=== PATIENT | male | born 1970 | race Caucasian/White ===

== ENCOUNTER 2019-04-09 17:55 | Inpatient (IN) | payer OTHER, BC ==
[~2019-04-09] VITALS: Ht 177.8 cm; Wt 75.7 kg
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
[2019-04-09 18:42] LABS: BASOPHIL % 0.8 % (0-2); PLATELET COUNT 297 x10^3mcL (130-400)
[2019-04-09 18:44] LABS: CALCIUM 7.9 mg/dL (8.5-10.1); CARBON DIOXIDE 28.1 mmol/L (21-32); CHLORIDE SERUM 108 mmol/L (98-107); CREATININE SERUM 0.8 mg/dL (0.7-1.3); GFR1 > 60 mL/min; GLUCOSE SERUM 91 mg/dL (74-106); POTASSIUM SERUM 3.3 mmol/L (3.5-5.1); RED CELL DISTRIBUTION WIDTH 15.2 % (11.5-14.5); SODIUM SERUM 144 mmol/L (136-145)
[2019-04-09 18:49] LABS: ALBUMIN 3.6 g/dL (3.4-5.0); ALKALINE PHOSPHATASE 92 U/L (46-116); ALT/SGPT 22 U/L (16-63); AST/SGOT 18 U/L (15-37); BILIRUBIN TOTAL 0.2 mg/dL (0.20-1.00)
[2019-04-09 18:49] LABS: AMPHETAMINE QUAL UR NONE DETECTED (See below)
--- NOTE | 2019-04-09 19:30 | NUR ---
ASSUMED CARE OF PATIENT AT THIS TIME. PATIENT RECEIVED UPON STRETCHER AOX3, ON MONITOR, B/P NOTED TO BE ELEVATED ED MD AT BEDSIDE AT THIS TIME. MD AWARE, WILL CONTINUE TO MONITOR.
--- NOTE | 2019-04-09 19:30 | NUR ---
ASSUMED CARE OF PATIENT AT THIS TIME. PATIENT IS RECEIVED LYING ON STRETCHER AOX4, UPON MONITOR, B/P NOTED TO BE ELEVATED , AT BEDSIDE. WILL CONTINUE TO MONITOR PT.
--- NOTE | 2019-04-09 20:30 | NUR ---
WENT TO PT ROOM TO MEDICATE HIM WITH TORADOL AND HE REFUSED THE MEDICATION STATED THAT IT IS ONLY IBUPROFEN AND ITS FOR CHILDREN. HE WANTS SOMETHING MUCH STRONGER. PATIENT STATES THAT HE WANT TO BE DISCHARGED. PATIENT IS AOX4 AT THIS TIME. HIS MOTHER IS AT BEDSIDE, HE IS VERY AGITATED. WILL CONTINUE TO MONITOR.
--- NOTE | 2019-04-09 20:30 | NUR ---
WENT TO PATIENT ROOM TO MEDICATE HIM WITH TORADOL AND HE REFUSED MEDICATION. HE STATED THAT IT WAS LIKE IBUPROFEN AND HE PERFERRED SOMETHING STRONGER. PATIENTS MOTHER IS AT BEDSIDE AND PATIENT IS VERY IRRITATED AT THIS TIME. INFORMED MD OF PTS DISPOSITION AT THIS TIME.
--- NOTE | 2019-04-09 20:45 | NUR ---
ADMISSION TEAM AT BEDSIDE AT THIS TIME.
--- NOTE | 2019-04-09 20:45 | NUR ---
ADMISSION TEAM AT BEDSIDE. INFORMED ER MD DR HAAS OF PTS DISPOSITION AT THIS TIME.
[2019-04-09 21:14] LABS: microscopic required? NO
[2019-04-09 21:27] LABS: UA SPECIFIC GRAVITY <=1.005 (1.005-1.035); urine erythrocyte NEGATIVE (NEGATIVE)
--- NOTE | 2019-04-09 21:30 | NUR ---
REPORT ENDORSED TO HEAD BANQUET WAITRESSFAM REAGAN MD AT BEDSIDE AT THIS TIME.
[2019-04-09] MEDS ORDERED: EFFEXOR-XR150 MG PO (21:50)
[2019-04-09] MEDS ORDERED: LATUDA40 M1 PO (21:50)
[2019-04-09] MEDS ORDERED: STRATTERA60 MG PO (21:51)
[2019-04-09] MEDS ORDERED: ZOLOFT100 MG PO (21:51)
[2019-04-09] MEDS ORDERED: OLANZAPINE10 MG PO (21:51)
[2019-04-09] MEDS ORDERED: OMEPRAZOLE40 M1 PO (21:52)
[2019-04-09] MEDS ORDERED: CLONAZEPAM0.5 MG PO (21:52)
[2019-04-09] MEDS ORDERED: MIXED AMPHETAMI10 MG PO (21:52)
[2019-04-09] MEDS ORDERED: XAN1 PO (21:52)
[2019-04-09] MEDS ORDERED: LYRICA300 MG PO (21:52)
[2019-04-09] MEDS ORDERED: EPZICOM1 TAB (21:52)
[2019-04-09] MEDS ORDERED: VALTREX500 MG PO (21:53)
[2019-04-09] MEDS ORDERED: AMLODIPINE BESI25 GM MC (21:53)
--- NOTE | 2019-04-09 22:09 | NUR ---
PATIENT TAKEN TO FLOOR AT THIS TIME UPON SULFIDE HEAD OPERATOR. IN STABLE CONDITION.
--- NOTE | 2019-04-09 22:22 | NUR ---
PT TRANSPORTED TO [facility] VIA [facility] ON CM BY GILMER OTTO AND MER WALKER. PT IN NAD
--- NOTE | 2019-04-09 22:23 | NUR ---
HANDOFF RECEIVED FROM ED RN JOSE GUADALUPE. PATIENT ARRIVES TO ROOM 246, WITH MOTHER AT BEDSIDE. FAM LOVETT ADMITTING PATIENT AT THIS TIME. PATIENT AWAKE, ALERT, ORIENTED, X4.
[2019-04-09 22:57] VITALS: BP 161/104
--- NOTE | 2019-04-09 23:23 | NUR ---
ADMISSION ASSESSMENT AND GATHERING OF INFORMATION PERFORMED AT BEDSIDE, PATIENT ABLE TO ANSWER QUESTIONS, MOTHER ALSO GAVE PERTINENT INFORMATION ABOUT REASON OF ADMISSION TO THE HOSPITAL. PATIENT RECEIVED FROM ED VIA GUERNEY ACCOMPANIED BY RN AND FAMILY,ASSISTED COMFORTABLY IN BED, HOOKED TO MASKING MACHINE FEEDER #4 NSR, PATIENT AND FAMILY INFORMED ABOUT HOSP AND UNIT POLICIES AND BEDSIDE EQUIPMENTS.PER PATIENT AND MOTHER WAS DISCHARGED FROM [facility] TODAY AND ON THERE WAY HOME WHILE MOTHER IS DRIVING PATIENT BEEN EXPERIENCING DIZZINESS/NAUSEA/RESP, DISTRESS/UNRESPONSIVENESS ON THE PASSENGER SEAT, MOTHER TRIED TO SHAKE HIM AND HE COMES BACK TO CONSCIOUSNESS, WHEN THEY REACHED THERE DESTINATION PATIENT TOTALLY LOSS CONSCIOUSNESS, MOTHER CALLED 911 AND SHE WAS INTRUCTED TO PULL PATIENT OUT OF THE CAR AND PERFORM CP WHILE PARAMEDICS ON THERE WAY TO HER PLACE. PATIENT DURING INTERVIEW STATED THAT HE WANTED TO AND HAD BEEN HAVING SUICIDAL IDEATIONS AND ATTEMPTS NUMEROUS TIME BY TAKING PILLS AND WALKING THROUGH TRAFFIC, CHARGE NURSE CHARLENE AND ALSO DR FARRELL INFORMED ABOUT IT,PATIENT WILL BE PROVIDED WITH A 1;1 SITTER FOR SAFETY. HEPLOCK TO RT FA, SECURED WITH TAPE, CHECKED PATENCY AND FLUSHED WELL WITH NS, HOOKED ORDERED IVF ON NS AND REGULATED VIA PUMP AT 100ML/HR. PATIENT INFORMED ABOUT PURPOSE OF IV FLUID. HOME MEDICATION LIST ALSO WAS GIVEN TO DR FARRELL FOR VERIFICATION.SAFETY/FALL PRECAUTIONS INITIATED. WILL ENDORSE CARE TO ASSIGN NURSE LOPEZ
[2019-04-10] VITALS (8 sets, daily range): BP systolic 132–161; BP diastolic 86–118; Ht 177.8 cm; Wt 75.7 kg
--- NOTE | 2019-04-10 01:51 | NUR ---
FAMILY, PATIENT, SQL SERVER DEVELOPERMD FELISA PARK, INVOLVED IN PLAN OF CARE AND MED REC. SEVERAL CALLS PLACED TO PHARMACY TO VERIFY MEDICATIONS AND AVAILABILITY. AT PRESENT, IT CONTACTED BY SQL SERVER DEVELOPER MONA R/T SRUTHI MEDICATION ORDERED BUT NOT POPULATING ON EMAR. PATIENT INFORMED P.O.C FOR BIPAP AT NIGHT. EMOTIONL SUPPORT GIVEN, ACTIVE LISTENING, PATIENT IS NOW COOPERATIVE AND CALM. PATIENT NOTED UPON ARRIVAL TO UNIT AGITATED, VERBALIZED S/I THOUGHTS PER ADITTING RN REPORT, AND REQUESTING TO GO AMA. DEEP BREATHING TECHNIQUES EXPLORED AND EFFECTIVE. WILL CONTINUE TO MONITOR PATIENT AND F/U WITH IT. RT TO PERFORM BIPAP SCREENING. BLOOD PRESSURE ELEVATED 158/116. MEDICATED.
--- NOTE | 2019-04-10 02:15 | NUR ---
PLACED PT ON CPAP 5CM H20 28%. TAKEN OFF AT 0300 PER PT'S REQUEST. PLACED ON 2L NC.
--- NOTE | 2019-04-10 04:54 | NUR ---
MD ROBERTO VISITS BEDSIDE MUTLTIPLE TIMES AND COUNSELS PATIENT ON PLAN OF CARE. PATIENT REQUESTING ALL OF HIS MEDICATIONS, THEN ASKS FOR HIS EFFEXOR SO HE CAN GO TO SLEEP. PATIENT STATES, " I JUST WANT BE KNOCKED OUT SO I CAN SLEEP. EFFEXOR WILL LET ME SLEEP FOR SURE." PATIENT EDUCATED THAT HE WAS ADMITTED WITH CHIEF COMPLAINT OF NON-RESPONSIVNESS AND APNEIC EPISODE. PATIENT VERBALIZES UNDERSTANDING, HOWEVER CONTINUES TO ASK FOR MEDICATION AND STATES "THEY LIED TO ME DOWNSTAIRS. THEY TOLD ME I WOULD SLEEP AND GET ALL MY MEDS AND LEAVE WHENEVER I WANTED." HE MENTIONED HAVING SUICIDAL THOUGHTS. PATIENT STATES, " WELL, FINE THEN I TAKE IT BACK." AFTER HE WAS INFORMED FOR HIS SAFETY AND THE SAFETY OF OTHERS HE WAS BEING MONITORED WITH A SITTER. PATIENT STATED TO MD ROBERTO, " IT WAS 4 OT 6 TIMES", REGARDING TIME OF ATTEMPED SUICIDE. IN ADDITION, PATIENT STATED, THERE ARE PLENTY OF PEOPLE OR THINGS I WANT TO KILL, IT DOESNT MEAN IM GOING TO ACTUALLY DO IT. TELE PSYCH WAS CONTACTED, WAITED OVER 40 MINS FOR MD URBANO, CONNECTION ENDED AFTER 40 MONS OF BEING ON HOLD. PATIENT NOTED PUTTING HIS HAND IN MD ROBERTO'S FACE, ALSO YELLED AT SITTER "IM NOT TALKING TO YOU. THIS IS AN A AND B CONVERSATION SO C YOUR WAY OUT." PATIENT REDIRECTED AND BOUNDARIES ENCOURGED. DESCALTIONS TECHNIQUES IMPLEMENTED, MODERATELY EFFECTIVE. AT THIS MOMENT, PATIENT LAYIN IN BED QUIETLY. ENVIROMENTAL STIMULI DECREASED. SAFETY PRECAUTIONS IN USE AND MAINTAINED, WILL CONTINUE TO MONITOR.
[2019-04-10 06:09] LABS: BASOPHIL % 0.4 % (0-2); PLATELET COUNT 289 x10^3mcL (130-400)
[2019-04-10 06:15] LABS: RED CELL DISTRIBUTION WIDTH 14.6 % (11.5-14.5)
[2019-04-10 06:25] LABS: CALCIUM 8.6 mg/dL (8.5-10.1); CARBON DIOXIDE 27.9 mmol/L (21-32); CHLORIDE SERUM 109 mmol/L (98-107); CREATININE SERUM 0.7 mg/dL (0.7-1.3); GFR1 > 60 mL/min; GLUCOSE SERUM 99 mg/dL (74-106); PHOSPHOROUS 3.2 mg/dL (2.5-4.9); POTASSIUM SERUM 3.7 mmol/L (3.5-5.1); SODIUM SERUM 146 mmol/L (136-145)
--- NOTE | 2019-04-10 07:10 | NUR ---
TELE MAYDA URBANO SPOKE WITH PATIENT REMOTELY, HE WIOL FAX OVER HIS RECOOMENDATIONS. MD URBANO PER CONVERSATION TO RECOMMEND: LATUDA 40 MG BID, ZOLOFT 150MG DAILY, AND 5150 HOLD. FAX STILL PENDING AT THIS TIME. ENDORSED INFORMATION TO ONCOMING SHIFT RN. PATIENT IN BED RESTING QUIETLY WITH EYES CLOSED. SITTER REMAINS AT BEDSIDE.
--- NOTE | 2019-04-10 08:23 | NUR ---
PT REFUSED ABG DRAW. PT SO MAD AT THE MOMENT AND STATES THAT HE JUST WANTED TO GO HOME. INFORMED RN MERCEDES ABOUT PT'S REFUSAL. NO RESP DISTRESS NOTED ON RA.
--- NOTE | 2019-04-10 08:30 | NUR ---
DR ROBERTO PAGED REGARDING PT'S REFUSAL ON ABG DRAW.
--- NOTE | 2019-04-10 11:04 | NUR ---
Pt verbalized to rn that he wants to call his mother. He also states that his medications last night were not given correctly and that he was "lied to". Rn went over medications given to him once he arrived on our unit and informed him of all the medications she was giving to him. Pt denies currently feeling suicidal or wants to commit harm to self or others. Pt request to see Dr. Page CALLED Md and informed of pt request. RN will continue to monitor pt. Sitter at [facility].
[2019-04-11 05:17] VITALS: BP 102/71
--- NOTE | 2019-04-11 06:18 | NUR ---
HANDOFF GIVEN TO RN SAM. PATIENT STABLE AND CALL LIGHT WITHIN REACH.
[2019-04-11 06:25] LABS: CALCIUM 8.9 mg/dL (8.5-10.1); CARBON DIOXIDE 29.4 mmol/L (21-32); CHLORIDE SERUM 109 mmol/L (98-107); CREATININE SERUM 0.8 mg/dL (0.7-1.3); GFR1 > 60 mL/min; GLUCOSE SERUM 103 mg/dL (74-106); MAGNESIUM 1.9 mg/dL (1.8-2.4); PHOSPHOROUS 3.2 mg/dL (2.5-4.9); POTASSIUM SERUM 4.5 mmol/L (3.5-5.1); SODIUM SERUM 145 mmol/L (136-145)
[2019-04-11 06:36] LABS: BASOPHIL % 0.6 % (0-2); PLATELET COUNT 306 x10^3mcL (130-400)
[2019-04-11 07:05] LABS: RED CELL DISTRIBUTION WIDTH 14.9 % (11.5-14.5)
--- NOTE | 2019-04-11 07:46 | NUR ---
PT RESTING IN BED WITH BOTH EYES CLOSED. NO S/S OF ACUTE DISTRESS. NO SOB ON ROOM AIR. RR EVEN/UNLABORD. CHEST EXPANSION SYMMETRICAL. EASILY AROUSABLE TO VERBAL STIMULI. AA/OX4. FOLLOWS COMPLEX COMMANDS, RESPONDS TO VERBAL STIMULI. CALM/COOPERATIVE AT TIMES. FRUSTATED AT TIMES. [address], DANGER TO SELF. SITTER AT BEDSIDE. PT DENIES SUICIDAL IDEATION AT THIS TIME. NSR ON TELE 4, HR 88. DENIES CHEST PAIN. DENIES ABD. PAIN. VOIDS FREELY. VOID X1. AMBULATORY WITH FULL ROM, GAIT STEADY. C/O ALEGRIA, RATES 5/10. CONTINUOUS. ACHING. WILL GIVE PO TYLENOL. SEE MAR. IV WNL RFA, SALINE LOCKED. SITE WNL. BED IN LOW POSITION. CALL LIGHT WITHIN REACH. WILL CONT. TO MONITOR. MOTHER SATNAM AT BEDSIDE. PT IN ROOM CLOSE TO NURSES STATION.
[2019-04-11 07:51] VITALS: BP 119/85
[2019-04-11 12:04] VITALS: BP 126/78
--- NOTE | 2019-04-11 13:30 | NUR ---
[facility]. GAIT STEADY. AA/OX4. CALM/COOPERATIVE AT THIS TIME. NO DIZZINESS. NO ALEGRIA. NO N/V. NO SOB ON ROOM AIR. NO CHEST PAIN. MED SURG. CALM/COOPERATIVE. IV WNL, SALINE LOCKED. TOLERATING REGULAR DIET WELL. WILL CONTINUE TO MONITOR.
--- NOTE | 2019-04-11 14:11 | NUR ---
1. Recommend continuing regular diet at this time.
--- NOTE | 2019-04-11 14:11 | NUR ---
Initial Nutrition Assessment: 246T/B [place] HR Dx: Apneic event, polysubstance abuse PMHx: Ankylosing spondylitis and HTN PSHx: Morphine pump Labs: LDL 153H Meds: Colace, lyrica, zofran Diet: Regular PO intake since admission: (04/11) breakfast 100%, (04/10) dinner, breakfast 80%, lunch 60% Ht: 177.8 cm (70") Wt: 75 kg (165#) BMI: 24 kg/m2 Bed scale: 75 kg IBW: 166# (75 kg) %IBW: 99 UBW: 165# Age: 48/M Food Allergies: NKFA Skin: intact Marquise: 23 Edema: none GI: Last BM: 04/10 Trigger: N/V/D >3d, poor PO >3d Per H&P, Pt is a 48 years old male with PMH of Ankylosing spondylitis and HTN who brought to ED due to [address] Note (04/11): Patient was sleeping with mother at bedside. Per mother, patient ate almost all of his breakfast this morning and has good appetite. Problem with: N/V/D/C: none per mother Problems with: Chewing: Swallowing: none Current appetite: good Recent wt change: none %wt change: n/a Vitamin/Supplement use: MVI, omega 3 Special diet at home: Regular Physical activity: sedentary Nutrition education given: none ta this time Food-drug interactions: none Education given: n/a Estimated Nutritional Needs Based on current body weight (75 kg) Energy: 3090-1795 kcal/day (25-30 kcal/kg for maintenance) Protein: 75- 90 g/day (1.0-1.2 g/kg for maintenance) Fluid: 1913-1233 mL/day (1 mL/kcal) Nutrition Diagnosis: 1. Altered nutrition related lab value related to dietary/ lifestyle habits as evidenced by LDL 153H. Intervention 1. Recommend continuing regular diet at this time. Monitor/Evaluate Goal: PO intake at least 75% of estimated needs Monitor: PO intake, Labs, GI function F/U in 7 days as low risk 04/18
--- NOTE | 2019-04-11 15:31 | NUR ---
[facility] aware of need for placement. Referral has been faxed to the following facilities: [facility] [place], [facility].
--- NOTE | 2019-04-11 15:33 | NUR ---
Received call from [facility], they cannot accpet, patient is too young
--- NOTE | 2019-04-11 15:40 | NUR ---
[facility] fax[facility] [place]
[2019-04-11] MEDS ORDERED: NOR5 PO (15:54)
[2019-04-11] MEDS ORDERED: OXCARBAZEPINE300 M1 PO (15:56)
--- NOTE | 2019-04-11 17:56 | NUR ---
PT LAYING IN BED. AA/OX4. NO C/O PAIN. NO SOB ON ROOM AIR. CALM/COOPERATIVE. MOTHER AT BEDSIDE. NO CHEST PAIN. IV WNL, SALINE LOCKED. MEDCreactivesRG. [address] SITTER AT BEDSIDE. BED IN LOW POSITION. CALL LIGHT WITHIN REACH. WILL ENDORSE TO ONCOMING SHIFT.
--- NOTE | 2019-04-11 19:02 | NUR ---
PT ARRANGED TO BE TRANSFERRED TO [facility] IN [place]. UNIT 2 ROOM 24B, REPORT GIVEN TO MICHAEL PYLE. REPORT CALL NUMBER [phone]. DR. MELENDEZ ACCEPTING PHYSICIAN. [facility] TRANSPORTATION ON WILL CALL: . WILL ENDORSE TO ONCOMING SHIFT.
--- NOTE | 2019-04-11 19:15 | NUR ---
RECEIVED PT FROM PREVIOUS SHIFT NURSE. PT AOX4, DENIES ALEGRIA/DIZZINESS. SPEECH CLEAR, ANSWERS QUESTIONS APPROPRIATELY. MED SURG PT, DENIES CP/PRESSURE. DENIES SOB/DIFFICULTY BREATHING, ON RA. SCAR TO LLQ WITH MORPHINE PUMP IN PLACE. IV TO RFA, SOME REDNESS NOTED, PER PT HE HAD SOME PAIN AT SITE, IV REMOVED. PT MOTHER AT BEDSIDE. BED IN LOWEST POSITION. CALL LIGHT WITHIN REACH. WILL CONTINUE TO MONITOR.
--- NOTE | 2019-04-11 19:30 | NUR ---
PT AND PT MOTHER REFUSING TRANSFER TO PSYCH FACILITY. DR. SANCHEZ NOTIFIED. PER DR. SANCHEZ SHE WILL ATTEMPT TO GET A HOLD OF DR. YU IF NO SUCCESS THEN TO HOLD PT UNTIL AM. AWAITING RESPONSE FROM DR. SANCHEZ.
[2019-04-11 19:54] VITALS: BP 149/96
--- NOTE | 2019-04-11 22:35 | NUR ---
Monitoring notes and aware of plan of care. [facility] will assist if needed.
--- NOTE | 2019-04-12 04:00 | NUR ---
PT RESTING IN BED. RR EVEN AND UNLABORED. IN NO ACUTE DISTRESS. CALL LIGHT WITHIN REACH. BED IN LOWEST POSITION. WILL CONTINUE TO MONITOR.
[2019-04-12 06:16] VITALS: BP 127/91
--- NOTE | 2019-04-12 07:30 | NUR ---
PT ENDORSE TO ME THIS MORNING, LAYING IN BED RESTING, AA/O X4. REMAINS ON 5150 HOLD/ 1:1 AT BEDSIDE. PT BREATHING EVEN AND UNLABORED ON RA, NO ACUTE RESP DISTRESS OR SOB NOTED. PT DENIES ANY S.I. AT THIS TIME/ MOTHER AT BEDSIDE. BOWEL SOUNDS ACTIVE IN ALL FOUR QUADS, VOIDS FREELY. AMB. OK TO SHOWER TO PER DOCTOR CAMILA. LLQ SCAR NOTED TO ABD. LFA INTACT AND PATENT/ HEPLOCKED. CALL LIGHT IN REACH. BED IN LOW POSITTION, BY NURSING STATION. WILL CONTINUE TO MONITOR.
[2019-04-12] MEDS ORDERED: NOR5 PO (12:47)
--- NOTE | 2019-04-12 14:20 | NUR ---
PT AMB X2 AROUND THE NURSING STATION WITH 1:1 . TOLERATED 100% OF HIS LUNCH. MOTHER AT BEDSIDE. PENDING PSYCH CONSULT TO EVAL PT. WILL CONTINUE TO MONITOR.
--- NOTE | 2019-04-12 15:54 | NUR ---
PT IS C/O FEELING ANXIOUS, ASKING FOR BENADRYL IV, ADVICE PT ONLY BENADRYL PO IS AVAILABLE. PT WAS UPSET STATING " THEY GIVE IT TO ME LAST NIGHT", ADVICE PT AND HIS MOTHER LETS TRY PO FORM AND SEE IF IT HELPS, THEY AGREED. WILL CONTINUE TO MONITOR.
[2019-04-12 17:15] VITALS: BP 122/91
--- NOTE | 2019-04-12 17:57 | NUR ---
PT C/O ITCHINESS, CALLED UTILITY WORKER FORGE ALEXSANDRA PLACED A ONE TIME ORDER OF BENADRYL 0.5ML, MEDICATED PER EMAR. PTS FAMILY AT BEDSIDE. WILL CONTINUE TO MONITOR.
--- NOTE | 2019-04-12 18:35 | NUR ---
NO ACUTE CHANGES AT THIS TIME, NO ACUTE RESP DISTRESS OR SOB NOTED. REMAINS ON 5150 HOLD, PENDING PSYCH CONSULT. PT DENIES ANY S.I. AT THIS TIME/ DENIES FEELING ANXIOUS AT THIS TIME. FAMILY AT BEDSIDE. WILL ENDORSE TO INCOMING RN.
[2019-04-12 19:07] VITALS: BP 130/96
--- NOTE | 2019-04-12 19:10 | NUR ---
RECEIVED PT FROM PREVIOUS SHIFT NURSE. PT AOX4, DENIES ALEGRIA/DIZZINESS. MED SURG PT, DENIES CP/PRESSURE. DENIES SOB/DIFFICULTY BREATHING, ON RA. MORPHINE PUMP TO LLQ, SCAR NOTED. IV TO LFA, INTACT AND PATENT. BED IN LOWEST POSITION. CALL LIGHT WITHIN REACH. WILL CONTINUE TO MONITOR.
--- NOTE | 2019-04-12 20:48 | NUR ---
Change of shift report was given earlier. Continuing to monitor notes and keep information open to any possible placement. There has been no updates but will keep facility updated.
--- NOTE | 2019-04-13 03:04 | NUR ---
PT RESTING IN BED. RR EVEN AND UNLABORED. IN NO ACUTE DISTRESS. CALL LIGHT WITHIN REACH. BED IN LOWEST POSITION. WILL CONTINUE TO MONITOR.
[2019-04-13 06:31] VITALS: BP 129/95
--- NOTE | 2019-04-13 07:30 | NUR ---
PT ENDORSED TO ME THIS MORNING, LAYING IN BED RESTING, AA/O X4, BREATHING EVEN AND UNLABORED ON RA, NO ACUTE RESP DISTRESS OR SOB NOTED. MEDSURG/ DENIES ANY CP OR PRESSURE. REMAINS ON 5150 HOLD 1:1 AT BEDSIDE,PT DENIES ANY S.I. FAMILY AT BEDSIDE. VOIDS FREELY, AMB. IV TO THE LFA INTACT AND PATENT/ NO REDNDESS OR SWELLING NOTED. CALL LIGHT IN REACH. BED IN LOW POSITION. BY NURSING STATION .WILL CONTINUE TO MONITOR.
[2019-04-13 08:43] VITALS: BP 124/103
--- NOTE | 2019-04-13 08:50 | NUR ---
DAWOOD UPTON AT BEDSIDE EXPLAINING PLAN TO PATIENT AND HIS FAM.
--- NOTE | 2019-04-13 09:48 | NUR ---
[facility] aware that patient to be re-evaluated this AM. Will contiue to follow up
[2019-04-13 10:33] VITALS: BP 137/95
[2019-04-13 10:42] VITALS: BP 137/95
[2019-04-13] MEDS ORDERED: LATUDA40 M1 PO (10:55)
[2019-04-13] MEDS ORDERED: ZYPREXA15 M1 PO (10:55)
--- NOTE | 2019-04-13 11:50 | NUR ---
PATIENT ALERT AND ORIENTED, DENIES DISCOMFORT FOR SI. NO ANY DISTRESS NOTED. DISCHARGE INSTRUCTIONS REVIEW WITH PATIENT AND MOTHER, INCLUDING NEW RX. FOLLOW UP CARE ETC. THEY VERBALIZEED UNDERSTANDING. HL REMOVED TO LT. AC WITH CATHETER INTACT. ESCORTED PATIENT TO PRIVATE AUTO BY FIELD MECHANIC AT THIS TIME.
== END 2019-04-13 12:15 | disposition home or self-care (01) | DRG 74 ==
LOC: ED 17:55 → MU 20:36 → DU 20:36 → MU 04-11 14:15
PROVIDERS: Emergency Medicine; ADMIT Internal Medicine
DX: G90.9 Disorder of the autonomic nervous system, unspecified (principal); J98.11 Atelectasis; R55 Syncope and collapse; T50.915A Adverse effect of multiple unspecified drugs, medicaments and biological substances, initial encounter; R06.81 Apnea, not elsewhere classified; E87.6 Hypokalemia; E87.8 Other disorders of electrolyte and fluid balance, not elsewhere classified; E83.51 Hypocalcemia; M45.9 Ankylosing spondylitis of unspecified sites in spine; I10 Essential (primary) hypertension; F31.9 Bipolar disorder, unspecified; F41.9 Anxiety disorder, unspecified; F90.9 Attention-deficit hyperactivity disorder, unspecified type; F17.210 Nicotine dependence, cigarettes, uncomplicated; F12.10 Cannabis abuse, uncomplicated; Z68.23 Body mass index [BMI] 23.0-23.9, adult
CPT/HCPCS: 82962; 83880; G0378; G0480; J1200; J1885; J2310; J2405; J7030; Q0092; Q0163